=== PATIENT | male | born 2000 | race African-American/Black ===

== ENCOUNTER 2018-04-10 09:02 | Emergency (ER) | payer OTHER ==
[~2018-04-10] VITALS: Ht 182.9 cm; Wt 60.8 kg
[~2018-04-10 09:02] MED LIST: ALBUTEROL INHAL17 GM IH; ALBUTEROL2.5 MG/32 IH; MEDROL DOSPAK21 TAB PO; MEDROLDOSEPACK PO; NOHOMEMEDICATIONS; PREDNISONE 20 M20 M1 PO; TRIAMCINOLONE TOP; VENTOLIN17 GM INH; ZPAK PO
[2018-04-10 10:39] VITALS: BP 132/78
== END 2018-04-10 10:40 | disposition home or self-care (01) ==
LOC: ER 09:02
DX: S01.81XA Laceration without foreign body of other part of head, initial encounter (principal); J45.909 Unspecified asthma, uncomplicated; W19.XXXA Unspecified fall, initial encounter; Y93.89 Activity, other specified; Y92.89 Other specified places as the place of occurrence of the external cause; Y99.8 Other external cause status